=== PATIENT | female | born 1945 | race Caucasian/White ===

== ENCOUNTER 2023-11-08 21:20 | Inpatient (IN) | payer MEDICARE ==
[2023-11-09] MEDS ORDERED: Acetaminophen/HYDROcodone 325-5 MG Tab PO ONE (00:22)
[2023-11-09] MEDS ORDERED: Ondansetron 4 MG Tab.DIS PO ONE (01:40)
[2023-11-09] MEDS ORDERED: Ondansetron 4 MG/2 ML SDV IV PRN (02:22)
[2023-11-09] MEDS ORDERED: Acetaminophen 325 MG Tab PO PRN (02:22)
[2023-11-09] MEDS ORDERED: Acetaminophen/HYDROcodone 325-5 MG Tab PO PRN (02:22)
[2023-11-09] MEDS ORDERED: Docusate Sodium 100 MG Cap PO PRN (02:22)
[2023-11-09] MEDS ORDERED: Ondansetron 4 MG Tab.DIS PO PRN (02:22)
[2023-11-09] MEDS: Sodium Chloride 0.9% 1,000 ML IV SCH ×2 (03:11→10:15)
[2023-11-09 09:09] LABS: INFLUENZA A NAA NEGATIVE (NEGATIVE); INFLUENZA B NAA NEGATIVE (NEGATIVE); RESPIRATORY SYNCYTIAL VIR NAA NEGATIVE (NEGATIVE)
[2023-11-09 09:13] LABS: CORONAVIRUS COVID-19 NAA POSITIVE (NEGATIVE)
[2023-11-09 11:42] VITALS: BP 145/60; PULSE 100
[2023-11-09] MEDS ORDERED: Latanoprost 0.005% Ophth Soln 2.5 ML Bottle EYEBOTH SCH (21:00)
== END 2023-11-09 15:10 | disposition home or self-care (01) | DRG 562 ==
LOC: JP.ED 21:20 → JP.MS 11-09 01:32
PROVIDERS: ADMIT Hospitalist; ATTEND Specialist
DX: S42.352A Displaced comminuted fracture of shaft of humerus, left arm, initial encounter for closed fracture (principal); U07.1 COVID-19; S42.252A Displaced fracture of greater tuberosity of left humerus, initial encounter for closed fracture; W18.40XA Slipping, tripping and stumbling without falling, unspecified, initial encounter; S42.202A Unspecified fracture of upper end of left humerus, initial encounter for closed fracture; S42.262A Displaced fracture of lesser tuberosity of left humerus, initial encounter for closed fracture; H40.9 Unspecified glaucoma; M81.0 Age-related osteoporosis without current pathological fracture; I10 Essential (primary) hypertension; Z79.899 Other long term (current) drug therapy; Z98.49 Cataract extraction status, unspecified eye; Z87.891 Personal history of nicotine dependence; W01.0XXA Fall on same level from slipping, tripping and stumbling without subsequent striking against object, initial encounter; Y92.481 Parking lot as the place of occurrence of the external cause
CPT/HCPCS: 0241U; 73020-26-LT; 73020-LT; 73200-LT; 97165-GO; 97535-GO; 99222; 99239; 99284; A9270-GY; J7030; Q0162

== ENCOUNTER 2023-11-19 23:02 | Emergency (ER) | payer MEDICARE ==
[2023-11-20] MEDS: LORazepam 0.5 MG Tab PO ONE (00:06)
[2023-11-20 00:08] LABS: BASOPHILS ABSOLUTE AUTO 0.08 K/uL (0.00-0.10); EOSINOPHILS ABSOLUTE AUTO 0.24 K/uL (0.00-0.40); HEMATOCRIT 36.5 % (34.3-46.0); HEMOGLOBIN 12.1 g/dL (11.2-15.5); IMMATURE GRAN ABSOLUTE AUTO 0.03 K/uL (0.00-0.23); IMMATURE GRAN PERCENT AUTO 0.4 % (0.0-0.7); LYMPHOCYTES ABSOLUTE AUTO 1.03 K/uL (0.8-3.3); LYMPHOCYTES PERCENT AUTO 12.7 % (11.4-47.7); MEAN CORPUSCULAR HEMOGLOBIN 30.7 pg (31.6-35.5); MEAN CORPUSCULAR HGB CONC 33.2 g/dL (31.6-35.5); MEAN CORPUSCULAR VOLUME 92.6 fL (81.4-99.0); MONOCYTES ABSOLUTE AUTO 0.58 K/uL (0.20-0.90); MONOCYTES PERCENT AUTO 7.2 % (3.3-12.6); NEUTROPHILS ABSOLUTE AUTO 6.12 K/uL (1.0-7.6); NEUTROPHILS PERCENT AUTO 75.7 % (40.0-78.1); PLATELET COUNT,PLT 269 K/uL (130-375); RED BLOOD CELL COUNT 3.94 M/uL (3.77-5.24); WHITE BLOOD CELL COUNT,WBC 8.1 K/uL (3.2-11.0)
[2023-11-20 00:35] LABS: ANION GAP 9.9 mmol/L (5.0-14.0); CALCIUM 8.9 mg/dL (8.5-10.1); CREATININE 0.9 mg/dL (0.6-1.0); EST CRCL DRUG DOSING (CG) 35.81 mL/min; POTASSIUM,K 3.9 mmol/L (3.6-5.2)
[2023-11-20 00:47] LABS: APPEARANCE,URINE CLOUDY (CLEAR); BILIRUBIN,URINE NEGATIVE (NEGATIVE); COLOR,URINE YELLOW (YELLOW); GLUCOSE,URINE NEGATIVE (NEGATIVE); KETONES,URINE NEGATIVE (NEGATIVE); LEUKOCYTE ESTERASE,URINE SMALL (NEGATIVE); NITRITE,URINE POSITIVE (NEGATIVE); OCCULT BLOOD,URINE TRACE-INTACT (NEGATIVE); PROTEIN,URINE NEGATIVE (NEGATIVE); UROBILINOGEN,URINE 0.2 EU/dL (0.2-1.0)
[2023-11-20 00:52] LABS: AMORPHOUS SEDIMENT,URINE NOT SEEN; BACTERIA,URINE MODERATE; EPITHELIAL CELLS,URINE FEW; MUCUS,URINE NOT SEEN; RBC,URINE 0-5 (0-5)
[2023-11-20 01:00] VITALS: PULSE 110
[2023-11-20] MEDS: Lisinopril 10 MG Tab PO ONE (01:09)
[2023-11-20 01:10] VITALS: BP 182/83
[2023-11-20] MEDS: Sulfamethoxazole/Trimethoprim 800-160 MG Tab PO ONE (01:10)
== END 2023-11-20 01:40 | disposition home or self-care (01) ==
LOC: JP.ED 23:02
DX: N39.0 Urinary tract infection, site not specified (principal); I10 Essential (primary) hypertension; Z79.899 Other long term (current) drug therapy
CPT/HCPCS: 36415; 80048; 81001; 84484; 85025; 87086; 87088; 87186; 93005; 99284; A9270

== ENCOUNTER 2023-11-23 10:06 | Emergency (ER) | payer MEDICARE ==
[2023-11-23 11:15] LABS: CALCIUM 8.4 mg/dL (8.5-10.1); CREATININE 0.9 mg/dL (0.6-1.0); EST CRCL DRUG DOSING (CG) 35.81 mL/min; POTASSIUM,K 3.9 mmol/L (3.6-5.2)
[2023-11-23 11:18] LABS: ANION GAP 14.9 mmol/L (5.0-14.0)
[2023-11-23 12:33] VITALS: BP 172/84; PULSE 104
== END 2023-11-23 13:36 | disposition home or self-care (01) ==
LOC: JP.ED 10:06
DX: I10 Essential (primary) hypertension (principal); N39.0 Urinary tract infection, site not specified; R26.81 Unsteadiness on feet; S42.352D Displaced comminuted fracture of shaft of humerus, left arm, subsequent encounter for fracture with routine healing; Z86.16 Personal history of COVID-19; W19.XXXD Unspecified fall, subsequent encounter
CPT/HCPCS: 36415; 70450; 70450-26; 80048; 99284; 99285